=== PATIENT | male | born 1970 | race Two or more races ===

== ENCOUNTER 2019-11-15 21:46 | Emergency (ER) | payer OTHER ==
[~2019-11-15] VITALS: Ht 175.3 cm; Wt 90.7 kg
== END 2019-11-15 22:46 | disposition home or self-care (01) ==
LOC: ER 21:46
DX: R07.0 Pain in throat (principal)

== ENCOUNTER 2022-03-24 15:40 | Outpatient (CLI) | payer OTHER | END 2022-03-24 15:48 | disposition home or self-care (01) | LOC: RAD 15:40 | PROVIDERS: ATTEND Internal Medicine Cardiovascular Disease | DX: I10 Essential (primary) hypertension (principal) ==